=== PATIENT | male | born 1965 | race Caucasian/White ===

== ENCOUNTER 2019-11-04 13:42 | Emergency (ER) | payer MEDICARE, MEDICAID, SELFPAY ==
--- NOTE | ~2019-11-04 | XR_ITS ---
EXAMINATION: XR lumbar spine 2-3V DATE: 11/04/2019 15:00 INDICATION: Right-sided low back pain. TECHNIQUE: 3 views of lumbar spine were obtained. COMPARISON: Lumbar spine radiographs 04/28/2014, CT 02/17/2006 FINDINGS: Bone alignment is normal. Vertebral body heights are normal. There are changes of disc repl acements at L3-L4, L4-L5, and L5-S1. There is mildly decreased disc height at T11-T12 and T12-L1. The re are endplate osteophytes at most levels. There is multilevel mild facet joint osteoarthritis. IMPRESSION: 1. Mild lumbar and lower thoracic spondylosis. 2. Disc replacements from L3-L4 through L5-S1. Reviewed, dictated and finalized at location A.
[2019-11-04 13:45] VITALS: BP 154/74; PULSE 65; RESP 20; TEMP 36.8; O2SAT 100
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
[2019-11-04] MEDS: ACETAMINOPHEN 500 MG TABLET 1000 MG PO (15:08)
--- NOTE | 2019-11-04 15:08 | PC.NURSE ---
report and care to [facility] Trin[facility]; pt. to radiology before could give pain meds.
[2019-11-04 15:24] VITALS: BP 146/78; PULSE 69; RESP 18; O2SAT 97
[2019-11-04 17:38] VITALS: BP 134/74; PULSE 65; RESP 16; O2SAT 98
== END 2019-11-04 17:39 | disposition home or self-care (01) ==
PROVIDERS: Emergency Provider Emergency Medicine
DX: S39.012A Strain of muscle, fascia and tendon of lower back, initial encounter (principal); I25.10 Atherosclerotic heart disease of native coronary artery without angina pectoris; E78.5 Hyperlipidemia, unspecified; I10 Essential (primary) hypertension; M47.816 Spondylosis without myelopathy or radiculopathy, lumbar region; M47.814 Spondylosis without myelopathy or radiculopathy, thoracic region; X50.9XXA Other and unspecified overexertion or strenuous movements or postures, initial encounter
CPT/HCPCS: 72100; 96374; 99284; A9270; J3360